=== PATIENT | male | born 1990 | race Two or more races ===

== ENCOUNTER 2017-08-07 12:46 | Emergency (ER) | payer MEDICAID, OTHER ==
[~2017-08-07] VITALS: Ht 188 cm; Wt 99.8 kg
[~2017-08-07 12:46] MED LIST: LISI-711; TRIA25CA
[2017-08-07] MEDS: HALOPERIDOL LACTATE 5 MG/ML INJ VIAL IM ONE (13:26)
[2017-08-07] MEDS: LORazepam 2MG/ML-1ML VIAL IM ONE (13:27)
[2017-08-07] MEDS: HALOPERIDOL LACTATE 5 MG/ML INJ VIAL ONE ×2 (13:27)
[2017-08-07] MEDS: LORazepam 2MG/ML-1ML VIAL ONE (13:28)
[2017-08-07] MEDS: diphenhdrAMINE HCL 50 MG/1 ML VL ONE (13:29)
[2017-08-07] MEDS: diphenhdrAMINE HCL 50 MG/1 ML VL IV ONE (13:29)
[2017-08-07 13:45] LABS: Basophils # (auto) 0.1 uL; Basophils % (auto) 0.4 % (0.0-2.0); Eosinophils # (auto) 0.1 uL; Eosinophils % (auto) 0.4 % (0.0-7.0); Hematocrit 49.4 % (41.0-53.0); Hemoglobin 16.2 g/dL (13.5-17.5); Lymphocytes # (auto) 2.9 uL; Lymphocytes % (auto) 19.7 % (10.0-50.0); Mean Corpuscular Hemoglobin 30.7 pg (28.0-32.0); Mean Corpuscular Hgb Conc. 32.8 g/dL (32.0-36.0); Mean Corpuscular Volume 93.6 fL (80.0-100.0); Monocytes % (auto) 6.7 % (0.0-12.0); Neutrophils # (auto) 10.7 uL; Neutrophils % (auto) 72.8 % (37.0-80.0); Nucleated Red Blood Cells % 0.1 %; Platelet Count (auto) 342 10^3/uL (140-450); Red Blood Cells 5.28 10^6/uL (4.5-5.90); White Blood Cell 14.8 10^3/uL (4.4-10.8)
[2017-08-07 14:12] LABS: Alanine Aminotransferase 20 U/L (16-61); Albumin 4.3 g/dL (3.4-5.0); Alkaline Phosphatase 74 U/L (45-117); Anion Gap 26 (5-15); Aspartate Aminotransferase 23 U/L (15-37); BUN/Creatinine Ratio 4.8; Bilirubin, Total 0.5 mg/dL (0.2-1.0); Blood Alcohol < 3.0 mg/dL (0-5); Blood Urea Nitrogen 9 mg/dL (7-18); Calcium 8.3 mg/dL (8.5-10.1); Carbon Dioxide 10 mmol/L (21-32); Chloride 102 mmol/L (98-107); GFR African American 56 mL/min; GFR Non-African American 46 mL/min; Glucose 141 mg/dL (74-106); Potassium 3.1 mmol/L (3.5-5.1); Sodium 138 mmol/L (136-145); Total Protein 8.4 g/dL (6.4-8.2)
[2017-08-07 15:29] LABS: Alcohol, Urine < 3.0 mg/dL (0-5); Amphetamine Screen, Urine POSITIVE (NEGATIVE); Barbiturate Scree,Urine NEGATIVE (NEGATIVE); Benzodiazephine Screen, Urine POSITIVE (NEGATIVE); Cannabinoid Screen, Urine POSITIVE (NEGATIVE); Cocaine Screen, Urine NEGATIVE (NEGATIVE); Opiate Scree,Urine NEGATIVE (NEGATIVE); Phencyclidine Screen, Urine NEGATIVE (NEGATIVE)
[2017-08-07 15:30] VITALS: BP 119/63
== END 2017-08-07 17:14 | disposition home or self-care (01) ==
LOC: EDBD 12:46 → ER 12:50
DX: G93.41 Metabolic encephalopathy (principal); I10 Essential (primary) hypertension; M54.9 Dorsalgia, unspecified; G89.29 Other chronic pain; F17.210 Nicotine dependence, cigarettes, uncomplicated; F15.10 Other stimulant abuse, uncomplicated; Z79.899 Other long term (current) drug therapy
CPT/HCPCS: 36415; 80053; 80307; 80320; 82962; 85025; 94761; 96372; 96374; 99284; J1200; J1630; J2060

== ENCOUNTER 2017-11-29 00:51 | Emergency (ER) | payer MEDICAID ==
[~2017-11-29] VITALS: Ht 182.9 cm; Wt 102.1 kg
[2017-11-29 01:37] LABS: Albumin 3.6 g/dL (3.4-5.0); BUN/Creatinine Ratio 10.7; Basophils # (auto) 0 uL; Basophils % (auto) 0.3 % (0.0-2.0); Calcium 7.3 mg/dL (8.5-10.1); Eosinophils # (auto) 0.1 uL; Eosinophils % (auto) 0.8 % (0.0-7.0); Hematocrit 44.3 % (41.0-53.0); Hemoglobin 14.6 g/dL (13.5-17.5); Lymphocytes # (auto) 1.8 uL; Lymphocytes % (auto) 18.1 % (10.0-50.0); Mean Corpuscular Hemoglobin 27.8 pg (28.0-32.0); Mean Corpuscular Volume 84.1 fL (80.0-100.0); Monocytes # (auto) 0.8 uL; Monocytes % (auto) 8.2 % (0.0-12.0); Neutrophils # (auto) 7.3 uL; Neutrophils % (auto) 72.6 % (37.0-80.0); Platelet Count (auto) 269 10^3/uL (140-450); Potassium 3.7 mmol/L (3.5-5.1); Red Blood Cells 5.27 10^6/uL (4.5-5.90); Red Cell Distribution Width 15.3 % (11.8-14.3); Salicylate 8.7 mg/dL (2.8-20.0)
[2017-11-29 01:39] LABS: Acetaminophen < 2.0 ug/mL (10-30); Bilirubin, Total 0.1 mg/dL (0.2-1.0)
[2017-11-29] MEDS ORDERED: NALOXONE HCL 0.4 MG/ML VIAL IV ONE (02:15)
[2017-11-29 03:30] VITALS: BP 131/78
== END 2017-11-29 05:04 | disposition home or self-care (01) ==
LOC: EDBD 00:51 → EDUNIT# 00:51 → ER 00:51
DX: T40.1X1A Poisoning by heroin, accidental (unintentional), initial encounter (principal); T43.621A Poisoning by amphetamines, accidental (unintentional), initial encounter; R40.20 Unspecified coma; F10.129 Alcohol abuse with intoxication, unspecified; I10 Essential (primary) hypertension; F17.210 Nicotine dependence, cigarettes, uncomplicated; F15.90 Other stimulant use, unspecified, uncomplicated; F19.10 Other psychoactive substance abuse, uncomplicated; Z79.899 Other long term (current) drug therapy; Z59.0 Homelessness; Y92.89 Other specified places as the place of occurrence of the external cause
CPT/HCPCS: 36415; 71045; 80053; 80320; 80329; 85025; 93005

== ENCOUNTER 2018-02-05 10:34 | Emergency (ER) | payer MEDICAID ==
[~2018-02-05] VITALS: Ht 185.4 cm; Wt 102.1 kg
[2018-02-05 10:44] VITALS: BP 135/74
[2018-02-05] MEDS ORDERED: TETANUS-DIPTH-ACEL PERTUSSIS 0.5ML SYRG IM ONE (13:00)
[2018-02-05] MEDS ORDERED: IBUPROFEN 800 MG TAB PO ONE (13:00)
== END 2018-02-05 13:31 | disposition home or self-care (01) ==
LOC: ER 10:34
DX: S91.331A Puncture wound without foreign body, right foot, initial encounter (principal); S90.32XA Contusion of left foot, initial encounter; I10 Essential (primary) hypertension; F17.210 Nicotine dependence, cigarettes, uncomplicated; F15.90 Other stimulant use, unspecified, uncomplicated; Z59.0 Homelessness; Z79.899 Other long term (current) drug therapy; Y04.0XXA Assault by unarmed brawl or fight, initial encounter; Y93.89 Activity, other specified; Y99.8 Other external cause status; Y92.89 Other specified places as the place of occurrence of the external cause
CPT/HCPCS: 73630; 90471; 90715

== ENCOUNTER 2018-09-30 11:15 | Emergency (ER) | payer MEDICAID ==
[~2018-09-30] VITALS: Ht 185.4 cm; Wt 104.3 kg
[2018-09-30 12:22] VITALS: BP 139/94
[2018-09-30] MEDS ORDERED: TETANUS-DIPTH-ACEL PERTUSSIS 0.5ML SYRG IM ONE (13:00)
== END 2018-09-30 13:02 | disposition home or self-care (01) ==
LOC: ER 11:16
DX: S91.112A Laceration without foreign body of left great toe without damage to nail, initial encounter (principal); F17.210 Nicotine dependence, cigarettes, uncomplicated; F15.10 Other stimulant abuse, uncomplicated; I10 Essential (primary) hypertension; Z59.0 Homelessness; W26.8XXA Contact with other sharp object(s), not elsewhere classified, initial encounter; Y93.89 Activity, other specified; Y92.39 Other specified sports and athletic area as the place of occurrence of the external cause; Y99.8 Other external cause status
CPT/HCPCS: 90471; 90715

== ENCOUNTER 2019-01-03 18:05 | Emergency (ER) | payer MEDICAID ==
[~2019-01-03] VITALS: Ht 167.6 cm; Wt 93.0 kg
[2019-01-03] MEDS ORDERED: SODIUM CHLORIDE 0.9% 2,000 ML IV ONE (18:30)
[2019-01-03 18:51] VITALS: BP 149/101
[2019-01-03] MEDS ORDERED: SODIUM CHLORIDE 0.9% 1,000 ML IV ONE (19:45)
[2019-01-03 20:38] LABS: Amphetamine Screen, Urine POSITIVE (NEGATIVE); Barbiturate Scree,Urine NEGATIVE (NEGATIVE); Benzodiazephine Screen, Urine NEGATIVE (NEGATIVE); Cannabinoid Screen, Urine NEGATIVE (NEGATIVE); Cocaine Screen, Urine NEGATIVE (NEGATIVE); Phencyclidine Screen, Urine NEGATIVE (NEGATIVE)
[2019-01-03 20:45] LABS: Opiate Scree,Urine NEGATIVE (NEGATIVE)
== END 2019-01-03 20:51 | disposition home or self-care (01) ==
LOC: ER 18:05
DX: R00.0 Tachycardia, unspecified (principal); F15.10 Other stimulant abuse, uncomplicated; I10 Essential (primary) hypertension; F17.210 Nicotine dependence, cigarettes, uncomplicated; Z59.0 Homelessness; Z79.899 Other long term (current) drug therapy
CPT/HCPCS: 80307; 93005; 99284; J7030

== ENCOUNTER 2019-05-10 11:47 | Emergency (ER) | payer SELFPAY ==
[~2019-05-10] VITALS: Ht 185.4 cm; Wt 97.5 kg
[2019-05-10 13:17] VITALS: BP 136/77
[2019-05-10] MEDS ORDERED: ACETAMINOPHEN/CODEINE#3 (300/30mg) TAB PO ONE (14:00)
== END 2019-05-10 14:56 | disposition home or self-care (01) ==
LOC: ER 11:47
DX: S82.831A Other fracture of upper and lower end of right fibula, initial encounter for closed fracture (principal); F17.210 Nicotine dependence, cigarettes, uncomplicated; F15.10 Other stimulant abuse, uncomplicated; I10 Essential (primary) hypertension; W11.XXXA Fall on and from ladder, initial encounter; Y93.89 Activity, other specified; Y92.89 Other specified places as the place of occurrence of the external cause; Y99.8 Other external cause status
CPT/HCPCS: 29515; 73562; 73610

== ENCOUNTER 2019-05-20 10:14 | Emergency (ER) | payer SELFPAY ==
[~2019-05-20] VITALS: Ht 185.4 cm; Wt 99.8 kg
[2019-05-20 10:32] VITALS: BP 150/104
[2019-05-20] MEDS ORDERED: ACETAMINOPHEN/CODEINE#3 (300/30mg) TAB PO ONE (11:00)
== END 2019-05-20 11:05 | disposition home or self-care (01) ==
LOC: ER 10:14
DX: S82.831A Other fracture of upper and lower end of right fibula, initial encounter for closed fracture (principal); F17.210 Nicotine dependence, cigarettes, uncomplicated; I10 Essential (primary) hypertension; W11.XXXA Fall on and from ladder, initial encounter; Y93.89 Activity, other specified; Y92.89 Other specified places as the place of occurrence of the external cause; Y99.8 Other external cause status
CPT/HCPCS: 29515

== ENCOUNTER 2019-09-15 19:17 | Emergency (ER) | payer MEDICAID ==
[~2019-09-15] VITALS: Ht 185.4 cm; Wt 102.1 kg
[2019-09-15 19:26] VITALS: BP 153/117
== END 2019-09-15 19:45 ==
LOC: ER 19:17
DX: F19.10 Other psychoactive substance abuse, uncomplicated (principal); F10.10 Alcohol abuse, uncomplicated; Y90.9 Presence of alcohol in blood, level not specified

== ENCOUNTER 2019-09-29 11:32 | Emergency (ER) | payer MEDICAID ==
[~2019-09-29] VITALS: Ht 185.4 cm; Wt 90.7 kg
[2019-09-29 12:25] LABS: Basophils # (auto) 0.1 10 ^3/uL (0-0.2); Basophils % (auto) 0.7 % (0.0-2.0); Eosinophils # (auto) 0 10 ^3/uL (0-0.8); Eosinophils % (auto) 0.3 % (0.0-7.0); Hematocrit 51.3 % (41.0-53.0); Lymphocytes # (auto) 1.2 10 ^3/uL (0.4-5.4); Lymphocytes % (auto) 10.3 % (10.0-50.0); Mean Corpuscular Hemoglobin 27.9 pg (28.0-32.0); Mean Corpuscular Hgb Conc. 33.2 g/dL (32.0-36.0); Monocytes # (auto) 0.5 10 ^3/uL (0-1.3); Monocytes % (auto) 4.2 % (0.0-12.0); Neutrophils % (auto) 84.5 % (37.0-80.0); Nucleated Red Blood Cells % 0.1 %; Platelet Count (auto) 344 10^3/uL (140-450); Red Blood Cells 6.11 10^6/uL (4.5-5.90); Red Cell Distribution Width 17.1 % (11.8-14.3); White Blood Cell 11.9 10^3/uL (4.4-10.8)
[2019-09-29 12:39] LABS: Albumin 4.3 g/dL (3.4-5.0); Calcium 8.6 mg/dL (8.5-10.1); Salicylate < 1.7 mg/dL (2.8-20.0)
[2019-09-29 12:42] LABS: Acetaminophen < 2.0 ug/mL (10-30)
[2019-09-29 12:44] LABS: BUN/Creatinine Ratio 7.5; Bilirubin, Total 0.6 mg/dL (0.2-1.0); Total Protein 8.3 g/dL (6.4-8.2)
[2019-09-29] MEDS ORDERED: SODIUM CHLORIDE 0.9% 1,000 ML IVB ONE (12:58)
[2019-09-29 13:14] LABS: Amphetamine Screen, Urine POSITIVE (NEGATIVE); Barbiturate Scree,Urine NEGATIVE (NEGATIVE); Benzodiazephine Screen, Urine NEGATIVE (NEGATIVE); Cannabinoid Screen, Urine POSITIVE (NEGATIVE); Cocaine Screen, Urine NEGATIVE (NEGATIVE); Opiate Scree,Urine POSITIVE (NEGATIVE); Phencyclidine Screen, Urine NEGATIVE (NEGATIVE)
[2019-09-29 15:34] VITALS: BP 144/93
[2019-09-29] MEDS ORDERED: POTASSIUM CHL 20 Meq TABLET PO ONE (15:45)
== END 2019-09-29 16:00 | disposition home or self-care (01) ==
LOC: EDBD 11:32 → ER 11:32
DX: F15.20 Other stimulant dependence, uncomplicated (principal); E87.6 Hypokalemia; F17.210 Nicotine dependence, cigarettes, uncomplicated; F12.10 Cannabis abuse, uncomplicated; Z59.0 Homelessness
CPT/HCPCS: 36415; 71045; 80053; 80307; 80320; 80329; 83735; 85025; 93005; 96360; 96361; 99285; J7030

== ENCOUNTER 2019-10-26 18:01 | Emergency (ER) | payer MEDICAID ==
[~2019-10-26] VITALS: Ht 182.9 cm; Wt 81.6 kg
[2019-10-26] MEDS ORDERED: SODIUM CHLORIDE 0.9% 1,000 ML IVB ONE (18:18)
[2019-10-26] MEDS ORDERED: LORazepam 2MG/ML-1ML VIAL IV ONE (18:30)
[2019-10-26 18:59] LABS: Basophils # (auto) 0.1 10 ^3/uL (0-0.2); Basophils % (auto) 0.9 % (0.0-2.0); Eosinophils # (auto) 0 10 ^3/uL (0-0.8); Eosinophils % (auto) 0.3 % (0.0-7.0); Hematocrit 45.1 % (41.0-53.0); Hemoglobin 15.1 g/dL (13.5-17.5); Lymphocytes % (auto) 11.7 % (10.0-50.0); Mean Corpuscular Hgb Conc. 33.5 g/dL (32.0-36.0); Mean Corpuscular Volume 83.4 fL (80.0-100.0); Monocytes # (auto) 0.2 10 ^3/uL (0-1.3); Monocytes % (auto) 2.8 % (0.0-12.0); Neutrophils # (auto) 7.2 10 ^3/uL (1.6-8.6); Neutrophils % (auto) 84.3 % (37.0-80.0); Platelet Count (auto) 331 10^3/uL (140-450); Red Blood Cells 5.41 10^6/uL (4.5-5.90); Red Cell Distribution Width 16.4 % (11.8-14.3); White Blood Cell 8.6 10^3/uL (4.4-10.8)
[2019-10-26 19:22] LABS: Albumin 3.2 g/dL (3.4-5.0); Calcium 7.7 mg/dL (8.5-10.1); Potassium 4.5 mmol/L (3.5-5.1)
[2019-10-26 19:26] LABS: BUN/Creatinine Ratio 7.2; Bilirubin, Total 0.2 mg/dL (0.2-1.0); Total Protein 7.3 g/dL (6.4-8.2)
[2019-10-26 21:21] LABS: Amphetamine Screen, Urine POSITIVE (NEGATIVE); Barbiturate Scree,Urine NEGATIVE (NEGATIVE); Benzodiazephine Screen, Urine NEGATIVE (NEGATIVE); Cannabinoid Screen, Urine NEGATIVE (NEGATIVE); Cocaine Screen, Urine NEGATIVE (NEGATIVE); Opiate Scree,Urine NEGATIVE (NEGATIVE); Phencyclidine Screen, Urine NEGATIVE (NEGATIVE); Urine Bacteria NONE SEEN /hpf (None Seen); Urine Blood Negative /uL (Negative); Urine Specific Gravity 1.005 (1.001-1.035); Urine WBC 1 /hpf (0 - 3)
[2019-10-26 22:00] VITALS: BP 104/58
== END 2019-10-26 23:00 | disposition home or self-care (01) ==
LOC: EDBD 18:01 → ER 18:01
DX: F10.229 Alcohol dependence with intoxication, unspecified (principal); R41.82 Altered mental status, unspecified; F15.10 Other stimulant abuse, uncomplicated; F17.210 Nicotine dependence, cigarettes, uncomplicated; F12.10 Cannabis abuse, uncomplicated; Z59.0 Homelessness; Z79.899 Other long term (current) drug therapy; Y90.8 Blood alcohol level of 240 mg/100 ml or more
CPT/HCPCS: 36415; 80053; 80307; 80320; 81001; 82550; 82962; 85025; 93005; 96361; 96374; 99284; J2060; J7030

== ENCOUNTER 2020-03-30 22:39 | Emergency (ER) | payer MEDICAID ==
[~2020-03-30] VITALS: Ht 185.4 cm; Wt 86.2 kg
[2020-03-30 22:56] VITALS: BP 157/104
== END 2020-03-30 22:53 | disposition left against medical advice (07) ==
LOC: ER 22:39
DX: S02.609A Fracture of mandible, unspecified, initial encounter for closed fracture (principal); F17.210 Nicotine dependence, cigarettes, uncomplicated; F12.10 Cannabis abuse, uncomplicated; F15.10 Other stimulant abuse, uncomplicated; R41.82 Altered mental status, unspecified; F10.129 Alcohol abuse with intoxication, unspecified; Z59.0 Homelessness; Y90.8 Blood alcohol level of 240 mg/100 ml or more; X58.XXXA Exposure to other specified factors, initial encounter; Y93.89 Activity, other specified; Y92.89 Other specified places as the place of occurrence of the external cause; Y99.8 Other external cause status

== ENCOUNTER 2021-04-14 07:50 | Emergency (ER) | payer MEDICAID ==
[~2021-04-14] VITALS: Ht 185.4 cm; Wt 93.0 kg
[2021-04-14] MEDS ORDERED: IBUP800T27 PO (08:21)
[2021-04-14 08:26] VITALS: BP 165/99
== END 2021-04-14 08:37 | disposition home or self-care (01) ==
LOC: ER 07:50
DX: R68.84 Jaw pain (principal); F17.210 Nicotine dependence, cigarettes, uncomplicated; F12.10 Cannabis abuse, uncomplicated; F15.10 Other stimulant abuse, uncomplicated; Z59.00 Homelessness unspecified; Z48.00 Encounter for change or removal of nonsurgical wound dressing

== ENCOUNTER 2021-06-18 07:52 | Emergency (ER) | payer MEDICAID ==
[~2021-06-18] VITALS: Ht 185.4 cm; Wt 99.8 kg
[~2021-06-18 07:52] MED LIST changes: +IBUP800T27 PO
[2021-06-18 07:54] VITALS: BP 138/103
== END 2021-06-18 09:42 | disposition left against medical advice (07) ==
LOC: ER 07:52
DX: J34.89 Other specified disorders of nose and nasal sinuses (principal); Z53.21 Procedure and treatment not carried out due to patient leaving prior to being seen by health care provider

== ENCOUNTER 2021-07-23 10:52 | Emergency (ER) | payer MEDICAID, OTHER ==
[~2021-07-23] VITALS: Ht 177.8 cm; Wt 81.6 kg
[2021-07-23] MEDS ORDERED: SODIUM CHLORIDE 0.9% 1,000 ML IVB ONE (11:15)
[2021-07-23 14:42] LABS: Basophils # (auto) 0.1 10 ^3/uL (0-0.2); Eosinophils # (auto) 0 10 ^3/uL (0-0.8)
[2021-07-23 14:44] LABS: Basophils % (auto) 0.5 % (0.0-2.0); Hematocrit 33.4 % (41.0-53.0); Lymphocytes # (auto) 0.4 10 ^3/uL (0.4-5.4); Lymphocytes % (auto) 2.6 % (10.0-50.0); Mean Corpuscular Hemoglobin 19.3 pg (28.0-32.0); Mean Corpuscular Volume 64.2 fL (80.0-100.0); Monocytes # (auto) 0.8 10 ^3/uL (0-1.3); Monocytes % (auto) 5.2 % (0.0-12.0); Neutrophils # (auto) 14.5 10 ^3/uL (1.6-8.6); Neutrophils % (auto) 91.7 % (37.0-80.0); Red Blood Cells 5.21 10^6/uL (4.5-5.90); Red Cell Distribution Width 19.4 % (11.8-14.3); White Blood Cell 15.8 10^3/uL (4.4-10.8)
[2021-07-23 14:46] LABS: Alanine Aminotransferase 34 U/L (16-61); Albumin 3.6 g/dL (3.4-5.0); Anion Gap 7 (5-15); Aspartate Aminotransferase 87 U/L (15-37); BUN/Creatinine Ratio 18.3; Blood Alcohol < 3.0 mg/dL (0-5); Blood Urea Nitrogen 17 mg/dL (7-18); Calcium 7.6 mg/dL (8.5-10.1); Carbon Dioxide 26 mmol/L (21-32); Chloride 105 mmol/L (98-107); GFR African American 123 mL/min; GFR Non-African American 101 mL/min; Glucose 98 mg/dL (74-106); Sodium 138 mmol/L (136-145)
[2021-07-23 14:49] LABS: Alkaline Phosphatase 61 U/L (45-117); Bilirubin, Total 0.4 mg/dL (0.2-1.0); Total Protein 7.9 g/dL (6.4-8.2)
[2021-07-23 17:25] LABS: Alcohol, Urine < 3.0 mg/dL (0-10); Amphetamine Screen, Urine POSITIVE (NEGATIVE); Barbiturate Scree,Urine NEGATIVE (NEGATIVE); Benzodiazephine Screen, Urine NEGATIVE (NEGATIVE); Cocaine Screen, Urine NEGATIVE (NEGATIVE); Opiate Scree,Urine NEGATIVE (NEGATIVE); Phencyclidine Screen, Urine NEGATIVE (NEGATIVE)
[2021-07-23 17:33] LABS: Cannabinoid Screen, Urine POSITIVE (NEGATIVE)
[2021-07-23 19:35] VITALS: BP 136/95
== END 2021-07-23 20:35 | disposition home or self-care (01) ==
LOC: EDUNIT# 10:52 → EDBD 10:52 → ER 10:52
DX: R41.82 Altered mental status, unspecified (principal); F15.10 Other stimulant abuse, uncomplicated; F12.10 Cannabis abuse, uncomplicated; F19.10 Other psychoactive substance abuse, uncomplicated
CPT/HCPCS: 36415; 80053; 80307; 80320; 85025; 96360; 99285; J7030

== ENCOUNTER 2021-08-05 13:49 | Emergency (ER) | payer MEDICAID ==
[~2021-08-05] VITALS: Ht 185.4 cm; Wt 95.3 kg
[2021-08-05 14:02] VITALS: BP 138/90
== END 2021-08-05 17:38 | disposition left against medical advice (07) ==
LOC: ER 13:49
DX: Z48.01 Encounter for change or removal of surgical wound dressing (principal); Z53.21 Procedure and treatment not carried out due to patient leaving prior to being seen by health care provider